=== PATIENT | male | born 1980 | race African-American/Black ===

== ENCOUNTER 2022-04-29 05:20 | Inpatient (IN) | payer MEDICAID ==
[~2022-04-29] VITALS: Ht 185.4 cm; Wt 89.8 kg
[2022-04-29 06:44] LABS: CHLORIDE 105 mEq/L (98-107)
[2022-04-29 06:46] LABS: HEMATOCRIT. 35.8 % (42.0-52.0); HEMOGLOBIN. 11.8 g/dL (14.0-18.0); MEAN CORPUSCULAR HEMOGLOBIN 30.7 pg (28.0-32.0); MEAN CORPUSCULAR VOLUME 92.9 fL (80.0-94.0); PLATELET 267 x1000/uL (130-400); RED BLOOD CELL COUNT 3.86 mill/uL (4.7-6.1); RED CELL DISTRIBUTION WIDTH 14.6 % (11.6-14.6)
[2022-04-29] MEDS ORDERED: ASPIRIN 325MG TABLET PO ONE (07:00)
[2022-04-29] MEDS ORDERED: ENALAPRIL 2.5MG/2ML VIAL 2ML IV ONE (09:00)
[2022-04-29] MEDS ORDERED: FUROSEMIDE 40MG/4ML VIAL IVP ONE (09:00)
[2022-04-29] MEDS ORDERED: ENALAPRIL 1.25MG/ML VIAL 1ML IV SCH (09:15)
[2022-04-29 13:12] LABS: PLATELET ESTIMATE NORMAL
[2022-04-29] MEDS ORDERED: ONDANSETRON HCL 4MG/2ML INJ IV PRN (14:30)
[2022-04-29] MEDS ORDERED: KETOROLAC 15MG/ML VIAL IV PRN (14:30)
[2022-04-29] MEDS ORDERED: ZOLPIDEM TARTRATE 5MG TABLET PO PRN (14:30)
[2022-04-29] MEDS ORDERED: NITROGLYCERIN 0.4MG TABLET SL SL PRN (14:30)
[2022-04-29] MEDS ORDERED: GUAIFENESIN 200MG/10ML SUGAR FREE UDC PO PRN (14:30)
[2022-04-29] MEDS ORDERED: ACETAMINOPHEN 325MG TABLET PO PRN ×2 (14:30)
[2022-04-29] MEDS ORDERED: MAGNESIUM/ALUMINUM HYDROXIDE/SIMETHICONE 30ML UDC PO PRN (14:30)
[2022-04-29] MEDS ORDERED: IPRATROPIUM/ALBUTEROL 0.5-3(2.5)MG/3ML NEB NEB PRN (14:30)
[2022-04-29] MEDS ORDERED: DOCUSATE SODIUM 100MG CAPSULE PO PRN (14:30)
[2022-04-29] MEDS ORDERED: NA PHOS,M-B/NA PHOS,DI-BA ENEMA 118ML PR PRN (14:30)
[2022-04-29] MEDS: LOSARTAN POTASSIUM 50 MG TABLET PO SCH (14:42)
[2022-04-29] MEDS: NITROGLYCERIN OINT 1GM/INCH UDPKT TD SCH ×2 (14:42→22:01)
[2022-04-29 15:31] LABS: *AMPHETAMINES SCREEN URINE NEGATIVE (NEGATIVE); *BARBITURATES SCREEN URINE NEGATIVE (NEGATIVE); *BENZODIAZEPINES SCREEN URINE NEGATIVE (NEGATIVE); *COCAINE SCREEN URINE NEGATIVE (NEGATIVE); CANNABINOID URINE SCREEN PRESUMTIVE POSITIVE (NEGATIVE); METHADONE URINE SCREEN NEGATIVE (NEGATIVE); OPIATES URINE SCREEN NEGATIVE (NEGATIVE); PHENCYCLIDINE URINE SCREEN NEGATIVE (NEGATIVE)
[2022-04-29 15:47] LABS: ETHANOL BLOOD < 10 mg/dL; HDL CHOLESTEROL 54 mg/dL (40-59); LDL CHOLESTEROL 85 mg/dL (5-100); T4 FREE 1.04 ng/dL (0.76-1.46); TOTAL IRON BINDING CAPACITY 438 ug/dL (250-450)
[2022-04-29] MEDS: NIFEDIPINE XL 60MG TAB PO SCH (16:10)
[2022-04-29 16:13] LABS: FOLIC ACID (FOLATE) SERUM >20 ng/mL ng/mL (>5.38); VITAMIN B12 SERUM 426 pg/mL (211-911)
[2022-04-29] MEDS: CLONIDINE 0.1MG TABLET PO PRN (16:44)
[2022-04-29] MEDS: MINOXIDIL 10MG TABLET PO SCH (18:32)
[2022-04-29] MEDS: FUROSEMIDE 40MG/4ML VIAL IVP SCH (18:32)
[2022-04-29] MEDS: ENOXAPARIN 100MG/ML SYR SUBCUT SCH (18:32)
[2022-04-29] MEDS ORDERED: HYDRALAZINE 20MG/ML VIAL IV ONE (21:15)
[2022-04-29] MEDS ORDERED: HYDRALAZINE 20MG/ML VIAL IV NR (21:43)
[2022-04-29] MEDS: FAMOTIDINE 20MG TABLET PO SCH (22:00)
[2022-04-29 23:42] LABS: CREATINE KINASE MB FRACTION 1.5 ng/mL (0.5-3.6)
[2022-04-30] MEDS ORDERED: AMLO5TAB88 PO (01:39)
[2022-04-30] MEDS ORDERED: LISI-186 PO (01:39)
[2022-04-30] MEDS ORDERED: HYDR12.54 PO (01:39)
[2022-04-30 02:00] VITALS: BP 144/106
[2022-04-30 04:00] VITALS: BP 141/85
[2022-04-30] MEDS: FUROSEMIDE 40MG/4ML VIAL IVP SCH ×2 (06:05→17:00)
[2022-04-30] MEDS: ENOXAPARIN 100MG/ML SYR SUBCUT SCH ×2 (06:05→17:00)
[2022-04-30] MEDS: NITROGLYCERIN OINT 1GM/INCH UDPKT TD SCH ×3 (06:05→21:03)
[2022-04-30 06:57] LABS: CHLORIDE 102 mEq/L (98-107)
[2022-04-30 07:05] LABS: INR 1.1; PROTHROMBIN TIME 12.1 sec (9.6-11.0)
[2022-04-30 07:07] LABS: EOSINOPHILS % 1.1 % (0.0-5.0); HEMATOCRIT. 39.1 % (42.0-52.0); HEMOGLOBIN. 13.2 g/dL (14.0-18.0); LYMPHOCYTES % 11.5 % (20.0-50.0); MEAN CORPUSCULAR HEMOGLOBIN 30.5 pg (28.0-32.0); MEAN CORPUSCULAR VOLUME 90.7 fL (80.0-94.0); MONOCYTES % 4.6 % (2.0-8.0); NEUTROPHILS % 81.8 % (40.0-76.0); PLATELET 300 x1000/uL (130-400); RED BLOOD CELL COUNT 4.32 mill/uL (4.7-6.1); RED CELL DISTRIBUTION WIDTH 14.6 % (11.6-14.6)
[2022-04-30 07:10] LABS: PHOSPHORUS 2.1 mg/dL (2.5-4.9)
[2022-04-30 07:16] LABS: CREATINE KINASE MB FRACTION 1.4 ng/mL (0.5-3.6)
[2022-04-30 07:26] LABS: HEPATITIS B SURFACE ANTIGEN NEGATIVE
[2022-04-30 08:00] VITALS: BP 136/105
[2022-04-30] MEDS ORDERED: ASPIRIN 325MG EC TABLET PO SCH (09:00)
[2022-04-30] MEDS: CARVEDILOL 3.125 MG TABLET PO SCH ×2 (09:00→21:03)
[2022-04-30] MEDS: LOSARTAN POTASSIUM 50 MG TABLET PO SCH (09:00)
[2022-04-30] MEDS: FAMOTIDINE 20MG TABLET PO SCH ×2 (09:00→21:03)
[2022-04-30] MEDS: MINOXIDIL 10MG TABLET PO SCH (09:00)
[2022-04-30] MEDS ORDERED: ALBUTEROL (0.083%) 2.5MG/3ML NEB HHN PRN (09:00)
[2022-04-30] MEDS: NIFEDIPINE XL 60MG TAB PO SCH (09:00)
[2022-04-30] MEDS ORDERED: IPRATROPIUM BROMIDE (0.02%) 0.5MG/2.5ML NEB HHN PRN (09:00)
[2022-04-30] MEDS: SPIRONOLACTONE 25MG TABLET PO SCH (09:01)
[2022-04-30] MEDS ORDERED: POTASSIUM CHLORIDE 20MEQ TABLET SR PO NR ×2 (10:30→17:15)
[2022-04-30] MEDS ORDERED: POTASSIUM CHLORIDE INJ 40 MEQ in DEXT 5% WATER 250 ML IV ONE (10:30)
[2022-04-30 12:00] VITALS: BP 143/107
[2022-04-30] MEDS: KCL 20MEQ/100ML X 2 FOR TOTAL KCL 40MEQ/200ML IV SCH ×2 (13:56→14:55)
[2022-04-30 16:00] VITALS: BP 143/98
[2022-04-30] MEDS: CLONIDINE 0.1MG TABLET PO PRN (17:00)
[2022-04-30 20:00] VITALS: BP 136/90
[2022-05-01] VITALS (7 sets, daily range): BP systolic 131–150; BP diastolic 89–102
[2022-05-01] MEDS: FUROSEMIDE 40MG/4ML VIAL IVP SCH ×2 (05:06→17:50)
[2022-05-01] MEDS: NITROGLYCERIN OINT 1GM/INCH UDPKT TD SCH ×3 (05:07→21:46)
[2022-05-01] MEDS: ENOXAPARIN 100MG/ML SYR SUBCUT SCH ×2 (05:09→17:50)
[2022-05-01] MEDS: FAMOTIDINE 20MG TABLET PO SCH ×2 (08:10→20:48)
[2022-05-01] MEDS: SPIRONOLACTONE 25MG TABLET PO SCH (08:10)
[2022-05-01] MEDS: ASPIRIN 81MG EC TABLET PO SCH (08:10)
[2022-05-01] MEDS: LOSARTAN POTASSIUM 50 MG TABLET PO SCH (08:10)
[2022-05-01] MEDS: MINOXIDIL 10MG TABLET PO SCH (08:10)
[2022-05-01] MEDS: NIFEDIPINE XL 60MG TAB PO SCH (08:10)
[2022-05-01] MEDS: CARVEDILOL 3.125 MG TABLET PO SCH ×2 (08:10→20:48)
[2022-05-01 10:09] LABS: CHLORIDE 103 mEq/L (98-107)
[2022-05-01] MEDS: CLONIDINE 0.1MG TABLET PO PRN (13:09)
[2022-05-02] VITALS: BP 148/100
[2022-05-02 04:00] VITALS: BP 144/102
[2022-05-02] MEDS: ENOXAPARIN 100MG/ML SYR SUBCUT SCH (05:17)
[2022-05-02] MEDS: FUROSEMIDE 40MG/4ML VIAL IVP SCH (05:17)
[2022-05-02] MEDS: NITROGLYCERIN OINT 1GM/INCH UDPKT TD SCH (05:18)
[2022-05-02 08:00] VITALS: BP 158/118
[2022-05-02] MEDS ORDERED: SPIR25TA PO (08:34)
[2022-05-02] MEDS ORDERED: COR3 PO (08:34)
[2022-05-02] MEDS ORDERED: FURO-151 MT (08:34)
[2022-05-02] MEDS ORDERED: MINO10TA16 PO (08:34)
[2022-05-02] MEDS ORDERED: ATOR10TA MT (08:34)
[2022-05-02] MEDS ORDERED: ASPI-1406 PO (08:34)
[2022-05-02] MEDS ORDERED: ISOS120T9 MT (08:34)
[2022-05-02] MEDS ORDERED: LOSA50TA3 PO (08:34)
[2022-05-02] MEDS ORDERED: FAMO20TA8 PO (08:34)
[2022-05-02] MEDS ORDERED: NIFE-32 PO (08:34)
[2022-05-02] MEDS: CARVEDILOL 3.125 MG TABLET PO SCH (08:58)
[2022-05-02] MEDS: NIFEDIPINE XL 60MG TAB PO SCH (08:58)
[2022-05-02] MEDS: ASPIRIN 81MG EC TABLET PO SCH (08:59)
[2022-05-02] MEDS: LOSARTAN POTASSIUM 50 MG TABLET PO SCH (08:59)
[2022-05-02] MEDS: FAMOTIDINE 20MG TABLET PO SCH (08:59)
[2022-05-02] MEDS: MINOXIDIL 10MG TABLET PO SCH (08:59)
[2022-05-02] MEDS: SPIRONOLACTONE 25MG TABLET PO SCH (08:59)
[2022-05-02 10:07] VITALS: BP 139/85
== END 2022-05-02 10:40 | disposition home or self-care (01) | DRG 199 ==
LOC: ER 05:20 → MICUSO 11:15 → EDBEDREQTM 11:19 → EDBEDREQ 11:19 → 8WST 04-30 02:19
PROVIDERS: ADMIT Internal Medicine; ATTEND Internal Medicine
DX: I16.1 Hypertensive emergency (principal); J96.01 Acute respiratory failure with hypoxia; I21.A1 Myocardial infarction type 2; I50.43 Acute on chronic combined systolic (congestive) and diastolic (congestive) heart failure; I47.20 Ventricular tachycardia, unspecified; D63.8 Anemia in other chronic diseases classified elsewhere; I11.0 Hypertensive heart disease with heart failure; Z20.822 Contact with and (suspected) exposure to COVID-19; J45.909 Unspecified asthma, uncomplicated; E87.6 Hypokalemia; E80.6 Other disorders of bilirubin metabolism; Z91.14 Patient's other noncompliance with medication regimen
CPT/HCPCS: 36415; 71045; 80048; 80053; 80061; 80305; 80320; 82550; 82553; 82607; 82746; 83036; 83540; 83550; 83735; 83880; 84100; 84439; 84443; 84484; 85025; 86803; 87340; 87426; 93005; 93306; 93970; 99285; J0360; J1650; J1885; J1940; J3480; J3490; G0480

== ENCOUNTER 2022-08-06 16:34 | Inpatient (IN) | payer MEDICAID ==
[~2022-08-06] VITALS: Ht 188 cm; Wt 98.9 kg
[~2022-08-06 16:34] MED LIST: ASPI-1406 PO; ATOR10TA MT; COR3 PO; FAMO20TA8 PO; FURO-151 MT; ISOS120T13 MT; LOSA50TA3 PO; MINO10TA16 PO; NIFE-32 PO; SPIR25TA PO
[2022-08-06] MEDS ORDERED: IOHEXOL-350 100 ML BOTTLE ONE (17:24)
[2022-08-06 17:35] LABS: BASOPHILS % 0.6 % (0.0-2.0); EOSINOPHILS % 0.6 % (0.0-5.0); HEMATOCRIT. 40.7 % (42.0-52.0); HEMOGLOBIN. 13.8 g/dL (14.0-18.0); LYMPHOCYTES % 11.2 % (20.0-50.0); MEAN CORPUSCULAR HEMOGLOBIN 31.3 pg (28.0-32.0); MEAN CORPUSCULAR VOLUME 92.7 fL (80.0-94.0); MEAN PLATELET VOLUME 9.4 fl (7.4-10.4); MONOCYTES % 5.5 % (2.0-8.0); NEUTROPHILS % 82.1 % (40.0-76.0); PLATELET 190 x1000/uL (130-400); RED CELL DISTRIBUTION WIDTH 15.1 % (11.6-14.6)
[2022-08-06 17:44] LABS: CHLORIDE 106 mEq/L (98-107); INR 1.1; PROTHROMBIN TIME 11.9 sec (9.6-11.0)
[2022-08-06 17:54] LABS: ETHANOL BLOOD < 10 mg/dL
[2022-08-06] MEDS ORDERED: TENECTEPLASE 50MG/VIAL IV ONE (18:00)
[2022-08-06] MEDS ORDERED: HYDRALAZINE 20MG/ML VIAL IV ONE ×2 (18:00→18:45)
[2022-08-06] MEDS ORDERED: NICARDIPINE 40MG/200ML PREMIX 200 ML IV PRN (18:15)
[2022-08-06] MEDS ORDERED: NITROPRUSSIDE 50 MG in DEXT 5% WATER 248 ML IV PRN ×2 (18:45→19:00)
[2022-08-06] MEDS ORDERED: *TENECTEPLASE FOR AIS XX SCH (19:17)
[2022-08-06 21:11] LABS: CLARITY URINE CLEAR (CLEAR); COLOR URINE YELLOW (YELLOW); KETONES URINE NEGATIVE (NEGATIVE); LEUKOCYTE ESTERASE URINE NEGATIVE (NEGATIVE); NITRITE URINE NEGATIVE (NEGATIVE); OCCULT BLOOD URINE NEGATIVE (NEGATIVE); PROTEIN URINE TRACE (NEGATIVE); SPECIFIC GRAVITY URINE 1.013 (1.005-1.030); UROBILINOGEN URINE 0.2 E.U./dL (0.2-1.0)
[2022-08-06 21:26] LABS: *AMPHETAMINES SCREEN URINE NEGATIVE (NEGATIVE); *BARBITURATES SCREEN URINE NEGATIVE (NEGATIVE); *BENZODIAZEPINES SCREEN URINE NEGATIVE (NEGATIVE); *COCAINE SCREEN URINE NEGATIVE (NEGATIVE); CANNABINOID URINE SCREEN PRESUMTIVE POSITIVE (NEGATIVE); METHADONE URINE SCREEN NEGATIVE (NEGATIVE); OPIATES URINE SCREEN NEGATIVE (NEGATIVE); PHENCYCLIDINE URINE SCREEN NEGATIVE (NEGATIVE)
[2022-08-07] VITALS (50 sets, daily range): BP systolic 130–196; BP diastolic 64–135
[2022-08-07] MEDS ORDERED: ONDANSETRON HCL 4MG/2ML INJ IV PRN (13:15)
[2022-08-07] MEDS ORDERED: ACETAMINOPHEN 325MG TABLET PO PRN (13:15)
[2022-08-07] MEDS ORDERED: ISOSORBIDE MONONITRATE 60MG TABLET SR 24HR PO SCH (14:00)
[2022-08-07] MEDS: LOSARTAN POTASSIUM 50 MG TABLET PO SCH (14:29)
[2022-08-07] MEDS: NITROGLYCERIN OINT 1GM/INCH UDPKT TD SCH ×2 (14:29→21:07)
[2022-08-07] MEDS: SPIRONOLACTONE 25MG TABLET PO SCH (14:33)
[2022-08-07] MEDS: ENOXAPARIN 40MG/0.4ML SYR SUBCUT SCH (14:34)
[2022-08-07] MEDS ORDERED: POTASSIUM CHLORIDE INJ 40 MEQ in DEXT 5% WATER 250 ML IV ONE (15:15)
[2022-08-07] MEDS: NICARDIPINE 50 MG in SODIUM CHLORIDE 0.9% 230 ML IV PRN ×3 (15:28→23:56)
[2022-08-07] MEDS: KCL 20MEQ/100ML X 2 FOR TOTAL KCL 40MEQ/200ML IV SCH ×2 (17:29→18:59)
[2022-08-07] MEDS: MINOXIDIL 10MG TABLET PO SCH (17:30)
[2022-08-07] MEDS: NIFEDIPINE XL 60MG TAB PO SCH (17:30)
[2022-08-07] MEDS ORDERED: NICARDIPINE 100 MG in SODIUM CHLORIDE 0.9% 60 ML IV PRN (20:45)
[2022-08-07] MEDS: ATORVASTATIN CALCIUM 40MG TABLET PO SCH (21:06)
[2022-08-07] MEDS: CARVEDILOL 3.125 MG TABLET PO SCH (21:07)
[2022-08-07] MEDS: FAMOTIDINE 20MG TABLET PO SCH (21:07)
[2022-08-07] MEDS: HYDRALAZINE 20MG/ML VIAL IV PRN (23:57)
[2022-08-08] VITALS (95 sets, daily range): BP systolic 90–168; BP diastolic 37–112
[2022-08-08] MEDS: CLONIDINE 0.1MG TABLET PO PRN (01:46)
[2022-08-08] MEDS: NICARDIPINE 50 MG in SODIUM CHLORIDE 0.9% 230 ML IV PRN ×6 (03:40→21:54)
[2022-08-08 05:30] LABS: BASOPHILS % 0.6 % (0.0-2.0); EOSINOPHILS % 0.3 % (0.0-5.0); HEMATOCRIT. 42.9 % (42.0-52.0); HEMOGLOBIN. 14.6 g/dL (14.0-18.0); LYMPHOCYTES % 7.7 % (20.0-50.0); MEAN CORPUSCULAR HEMOGLOBIN 30.9 pg (28.0-32.0); MEAN CORPUSCULAR VOLUME 90.9 fL (80.0-94.0); MEAN PLATELET VOLUME 9.5 fl (7.4-10.4); MONOCYTES % 6.8 % (2.0-8.0); NEUTROPHILS % 84.6 % (40.0-76.0); PLATELET 239 x1000/uL (130-400); RED BLOOD CELL COUNT 4.72 mill/uL (4.7-6.1)
[2022-08-08] MEDS: NITROGLYCERIN OINT 1GM/INCH UDPKT TD SCH ×3 (05:32→22:09)
[2022-08-08 05:38] LABS: CHLORIDE 108 mEq/L (98-107)
[2022-08-08] MEDS: CARVEDILOL 3.125 MG TABLET PO SCH ×2 (09:03→21:54)
[2022-08-08] MEDS: ASPIRIN 81MG EC TABLET PO SCH (09:04)
[2022-08-08] MEDS: NIFEDIPINE XL 60MG TAB PO SCH (09:04)
[2022-08-08] MEDS: FUROSEMIDE 40MG TABLET PO SCH (09:04)
[2022-08-08] MEDS: LOSARTAN POTASSIUM 50 MG TABLET PO SCH (09:05)
[2022-08-08] MEDS: SPIRONOLACTONE 25MG TABLET PO SCH (09:05)
[2022-08-08] MEDS: MINOXIDIL 10MG TABLET PO SCH (09:05)
[2022-08-08] MEDS: FAMOTIDINE 20MG TABLET PO SCH ×2 (09:08→21:53)
[2022-08-08] MEDS ORDERED: POTASSIUM CHLORIDE 20MEQ TABLET SR PO NR ×2 (10:30→14:30)
[2022-08-08] MEDS: ENOXAPARIN 40MG/0.4ML SYR SUBCUT SCH (14:19)
[2022-08-08] MEDS: ATORVASTATIN CALCIUM 40MG TABLET PO SCH (21:54)
[2022-08-09] VITALS (72 sets, daily range): BP systolic 100–155; BP diastolic 30–106
[2022-08-09] MEDS: NICARDIPINE 50 MG in SODIUM CHLORIDE 0.9% 230 ML IV PRN (01:04)
[2022-08-09] MEDS: HYDRALAZINE 20MG/ML VIAL IV PRN (01:36)
[2022-08-09] MEDS: NITROGLYCERIN OINT 1GM/INCH UDPKT TD SCH ×3 (05:39→22:04)
[2022-08-09 06:23] LABS: BASOPHILS % 0.3 % (0.0-2.0); EOSINOPHILS % 0.4 % (0.0-5.0); HEMATOCRIT. 40.1 % (42.0-52.0); HEMOGLOBIN. 13.6 g/dL (14.0-18.0); LYMPHOCYTES % 9.1 % (20.0-50.0); MEAN CORPUSCULAR VOLUME 91.7 fL (80.0-94.0); MEAN PLATELET VOLUME 8.7 fl (7.4-10.4); NEUTROPHILS % 82.2 % (40.0-76.0); PLATELET 237 x1000/uL (130-400); RED BLOOD CELL COUNT 4.38 mill/uL (4.7-6.1)
[2022-08-09 06:29] LABS: INR 1.1; PROTHROMBIN TIME 11.6 sec (9.6-11.0)
[2022-08-09 06:37] LABS: CHLORIDE 109 mEq/L (98-107)
[2022-08-09] MEDS: LOSARTAN POTASSIUM 50 MG TABLET PO SCH (08:26)
[2022-08-09] MEDS: FUROSEMIDE 40MG TABLET PO SCH (08:26)
[2022-08-09] MEDS: SPIRONOLACTONE 25MG TABLET PO SCH (08:28)
[2022-08-09] MEDS: MINOXIDIL 10MG TABLET PO SCH (08:28)
[2022-08-09] MEDS: NIFEDIPINE XL 60MG TAB PO SCH (08:29)
[2022-08-09] MEDS: ASPIRIN 81MG EC TABLET PO SCH (08:29)
[2022-08-09] MEDS: CARVEDILOL 3.125 MG TABLET PO SCH ×2 (08:29→20:05)
[2022-08-09] MEDS: FAMOTIDINE 20MG TABLET PO SCH ×2 (08:30→20:05)
[2022-08-09] MEDS: ENOXAPARIN 40MG/0.4ML SYR SUBCUT SCH (13:50)
[2022-08-09] MEDS: ATORVASTATIN CALCIUM 40MG TABLET PO SCH (20:05)
[2022-08-09] MEDS: CLONIDINE 0.1MG TABLET PO PRN (22:06)
[2022-08-10] VITALS: BP 136/77
[2022-08-10 04:00] VITALS: BP 127/81
[2022-08-10] MEDS: NITROGLYCERIN OINT 1GM/INCH UDPKT TD SCH (06:31)
[2022-08-10 09:02] VITALS: BP 157/92
[2022-08-10] MEDS: FUROSEMIDE 40MG TABLET PO SCH (09:18)
[2022-08-10] MEDS: ASPIRIN 81MG EC TABLET PO SCH (09:18)
[2022-08-10] MEDS: FAMOTIDINE 20MG TABLET PO SCH (09:18)
[2022-08-10] MEDS: CARVEDILOL 3.125 MG TABLET PO SCH (09:18)
[2022-08-10] MEDS: LOSARTAN POTASSIUM 50 MG TABLET PO SCH (09:18)
[2022-08-10 10:22] VITALS: BP 149/78
[2022-08-10] MEDS: SPIRONOLACTONE 25MG TABLET PO SCH (10:28)
[2022-08-10] MEDS: NIFEDIPINE XL 60MG TAB PO SCH (10:28)
[2022-08-10] MEDS ORDERED: MINO10TA16 PO (12:29)
[2022-08-10] MEDS ORDERED: COR3 PO (12:29)
[2022-08-10] MEDS ORDERED: SPIR25TA PO (12:29)
[2022-08-10] MEDS ORDERED: FURO40TA5 PO (12:29)
[2022-08-10] MEDS ORDERED: NIFE-32 PO (12:29)
[2022-08-10] MEDS ORDERED: LOSA50TA3 PO (12:29)
[2022-08-10] MEDS ORDERED: LIP40 PO (12:29)
[2022-08-10] MEDS ORDERED: ASPI-1406 PO (12:29)
[2022-08-10] MEDS ORDERED: CLOP-31 MT (12:31)
[2022-08-10 12:35] VITALS: BP 127/88
[2022-08-10] MEDS: MINOXIDIL 10MG TABLET PO SCH (13:09)
[2022-08-10 13:30] VITALS: BP 127/88
== END 2022-08-10 16:08 | DRG 45 ==
LOC: ER 16:34 → MICUSO 19:03 → EDBEDREQTM 19:05 → EDBEDREQSVC 19:05 → EDBEDREQ 19:05 → MICUSO 08-07 13:19 → 3WST 08-09 21:51
PROVIDERS: ADMIT Internal Medicine; ATTEND Internal Medicine
DX: I63.512 Cerebral infarction due to unspecified occlusion or stenosis of left middle cerebral artery (principal); I21.4 Non-ST elevation (NSTEMI) myocardial infarction; I27.20 Pulmonary hypertension, unspecified; I48.92 Unspecified atrial flutter; I48.91 Unspecified atrial fibrillation; E78.5 Hyperlipidemia, unspecified; I50.42 Chronic combined systolic (congestive) and diastolic (congestive) heart failure; I11.0 Hypertensive heart disease with heart failure; I16.1 Hypertensive emergency; E87.6 Hypokalemia; I08.1 Rheumatic disorders of both mitral and tricuspid valves; R29.703 NIHSS score 3; J45.909 Unspecified asthma, uncomplicated; F17.210 Nicotine dependence, cigarettes, uncomplicated; Z96.659 Presence of unspecified artificial knee joint; Z79.899 Other long term (current) drug therapy
CPT/HCPCS: 36415; 70496; 70498; 70544; 70553; 71045; 76700; 80048; 80053; 80305; 80320; 81003; 82962; 84484; 85025; 93005; 93306; 93880; 93970; 97162; 99285; J0360; J1650; J2997; J3480; J3490; J7050; J7060; Q9967; G0480